=== PATIENT | male | born 1980 | race Caucasian/White ===

== ENCOUNTER → 2016-09-17 | Outpatient (CLI) | payer BC ==
--- NOTE | 2016-09-17 10:35 | DX ---
Chest, PA and Lateral Views, at 10:09 a.m. Clinical History: 35-year-old male with a history of a BCG vaccination. Rule out active tuberculosis. Comparison Study: None. Findings: The lungs are clear. The cardiac and mediastinal silhouette is normal. There is no adenopat hy, consolidation, or apical scarring. The osseous structures are age-appropriate. The trachea is mid line. The patient's arms obscure a portion of the anterior retrosternal space on the lateral view. Impression: Normal, with no evidence of old or active granulomatous disease.
== END ==
LOC: FIMAGING 09:58
PROVIDERS: ATTEND Dermatology
DX: Z03.89 Encounter for observation for other suspected diseases and conditions ruled out (principal); Z92.29 Personal history of other drug therapy